=== PATIENT | female | born 1980 | race Caucasian/White ===

== ENCOUNTER 2018-10-08 12:42 | Emergency (ER) | payer OTHER ==
[~2018-10-08] VITALS: Ht 165.1 cm; Wt 78.9 kg
[2018-10-08] MEDS ORDERED: PRENA1 TRUE CO1 EACH PO (12:55)
[2018-10-08] MEDS ORDERED: PROGESTERONE200 MG PO (12:55)
== END 2018-10-08 18:29 | disposition home or self-care (01) ==
LOC: ER 12:42
DX: O20.0 Threatened abortion (principal)